=== PATIENT | female | born 1940 | race Caucasian/White ===

== ENCOUNTER → 2016-12-13 | Outpatient (CLI) | payer MEDICARE, MEDICAID ==
[~2016-12-13] MED LIST: ARICEPT5 M1 PO; ASPIRIN81 M1 PO; BACTRIM DS 8001 TA1 PO; BP MED; CHOLESTEROL PILL; CIPRO500 MG PO; CITALOPRAM20 MG PO; COREG6.25 MG PO; DOXEPIN HCL25 MG PO; EXELON13.3 MG/21 T; EXELON4.6 MG/24 T; HYDROCODONE BIT1 T11 PO; MEMANTINE HCL10 MG PO; MIRTAZAPINE15 M2 PO; NAMENDA-5 PO; NICODERM C14 MG/24 H TD; QUINAPRIL40 MG PO; REMEDY WITH OLI1 PAS T; VITAMIN D-32000 UNI1 PO; VITAMIN D50000 I3 PO; ZOLOFT50 MG PO
[2016-12-13 16:25] LABS: BASO # 0.1 10*3/uL (0.0-0.1); BASO % 1.5 % (0.0-1.0); EOS # 0.1 10*3/uL (0.0-0.4); EOS % 1.9 % (1.0-4.0); HEMATOCRIT 43.7 % (37.0-47.0); HEMOGLOBIN 14.6 g/dl (12.0-16.0); LYMPH # 1.9 10*3/uL (1.3-4.4); LYMPH % 35.5 % (27.0-41.0); MEAN CELL VOLUME 93.4 fl (81.0-99.0); MEAN CORPUSCULAR HGB 31.2 pg (27.0-31.0); MEAN CORPUSCULAR HGB CONC 33.4 g/dl (33.0-37.0); MEAN PLATELET VOLUME 9.3 fl (9.6-12.3); MONO # 0.4 10*3/uL (0.1-1.0); MONO % 7.1 % (3.0-9.0); NEUT # 2.8 10*3/uL (2.3-7.9); NEUT % 53.8 % (47.0-73.0); PLATELET COUNT AUTOMATED 383 10*3/uL (130-400); RED BLOOD COUNT 4.68 10*6/uL (4.10-5.10); RED CELL DISTRI WIDTH 12.8 % (0-14.5); WHITE BLOOD COUNT 5.2 10*3/uL (4.8-10.8)
[2016-12-13 16:39] LABS: ALBUMIN 3.7 gm/dl (3.1-4.5); ALKALINE PHOSPHATASE 113 U/L (45-117); BILIRUBIN, TOTAL 0.6 mg/dl (0.2-1.0); BUN 10 mg/dl (7-24); CARBON DIOXIDE 25 mmol/L (21-32); CHLORIDE 105 mmol/L (98-107); EST GLOM FILT AFRICAN AMERICAN > 60 ml/min; GLUCOSE 86 mg/dL (65-99); POTASSIUM 4.1 mmol/L (3.5-5.1); SGOT/AST 14 IU/L (3-35); SGPT/ALT 13 U/L (12-78); SODIUM 140 mmol/L (136-145); TOTAL PROTEIN 7.8 gm/dL (6.4-8.2)
[2016-12-13 17:35] LABS: VITAMIN D, 25-HYDROXY 32.7 ng/mL (30-100)
[2016-12-13 17:36] LABS: PTH INTACT 51.9 pg/mL (14.0-72.0)
== END ==
LOC: LAB 15:38
PROVIDERS: Nurse Practitioner Family
DX: F03.90 Unspecified dementia, unspecified severity, without behavioral disturbance, psychotic disturbance, mood disturbance, and anxiety (principal); E55.9 Vitamin D deficiency, unspecified; E78.4 Other hyperlipidemia; E83.51 Hypocalcemia

== ENCOUNTER 2017-01-28 11:53 | Inpatient (IN) | payer MEDICARE ==
[~2017-01-28] VITALS: Ht 165.1 cm; Wt 60.8 kg
--- NOTE | ~2017-01-28 | PR ---
[place], [place] PROGRESS NOTE [id number] #: [id number] ROOM: 310 DOCTOR: FATMATA PEÑA BIRTHDATE: [birth year] DOS: 02/01/2017 SUMMARY OF VISIT: The patient was assessed in the dining room. She engaged in conversation with just 1 or 2-word responses. She was somewhat sleepy, but otherwise, pleasant. No complaints from nursing. MENTAL STATUS: She is alert and oriented to person. At this time, I am not sure about place or time. There are no overt signs of auditory or visual hallucinations. She still can be delusional at times per nursing. Some cognitive deficits noted. PLAN: I increased her Exelon yesterday. I want to see how she does over the next 24 hours. She feels it will help her cognitively. We will continue with the other medications as is and continue to titrate her dementia meds up quickly. RALF PEÑA CNP CM:PNTRANS 0925 [id number] FATMATA PEÑA 02/01/17 0943 interface
--- NOTE | ~2017-01-28 | PR ---
[place], [place] PROGRESS NOTE NAME: NIC PRUETT [facility] #: [id number] UNIT #: [id number] ROOM: 310 DOCTOR: FATMATA PEÑA BIRTHDATE: [birth year] DOS: 01/30/2017 CHIEF COMPLAINT: "Good morning." SUMMARY OF VISIT: The patient was assessed in the dining room. She engaged in minimal conversation. She was pleasant. Only complaint from nursing is that the patient did lick her hands after they put lotion on her, and they felt that there was still some possible hallucinations going on. MENTAL STATUS: She is alert and oriented to person, I think place, I do not know about time. Still having poor sleep. No overt signs of auditory or visual hallucinations during my assessment. No delusions, paranoia, chang or hypomania. PLAN: She was just started on Remeron. Lets see how she does over the next 24 hours. She was also started on the Exelon patch for her cognitive decline. Dr. Ellis has been consulted for competency. We will continue to try to engage in individual and barclay milieu therapy and monitor over the next 24 hours to get a plan. RALF PEÑA CNP CM:KYLER 0842 FATMATA PEÑA 01/30/17 0958 interface
--- NOTE | ~2017-01-28 | PR ---
[place], [place] PROGRESS NOTE NAME: NIC PRUETT [facility] #: [id number] UNIT #: [id number] ROOM: 310 DOCTOR: FATMATA PEÑA BIRTHDATE: [birth year] DOS: 01/31/2017 CHIEF COMPLAINT: "Good morning." SUMMARY OF VISIT: The patient was assessed in the dining room where the barclay milieu had finished up taking her vitals. She engaged in minimal conversation, 1 or 2-word responses only though. MENTAL STATUS: She is alert and oriented to person, I think place, not time. No overt signs of auditory or visual hallucination. She can become delusional at times, doing bizarre behaviors in particular like yesterday she would lick the hand lotion off her hands after they put lotion on her. No significant behaviors are noted. PLAN: We did start her on Remeron 2 days ago. This is helping. I am going to bump up her Exelon patch to 9.5 mg every day, see if I can help a little bit cognitively, help more so with her preventing behaviors and helping maintain or increase some of her ADLs. Dr. Ellis did see the patient and deemed her incompetent to make informed healthcare decisions at this time. RALF PEÑA CNP CM:PNTRANS 6 2 FATMATA PEÑA 01/31/17822 interface
--- NOTE | ~2017-01-28 | CON ---
[place], [place] REPORT OF CONSULTATION NAME: NIC PRUETT [facility] #: [id number] UNIT #: [id number] ROOM: 310 DOCTOR: UMESH LAZO ED.D (DANITZA) BIRTHDATE: [birth year] DOS: HISTORY OF PRESENT ILLNESS: The patient is a 76-year-old female referred by Dr. Morgan for competency evaluation. At the present time, she is on the [facility] at [facility]. This patient's medical history is pertinent for brief psychotic disorder, altered mental status, Alzheimer's dementia, depression and hypertension. She is on Exelon, quinapril, Coreg, aspirin and vitamin D3. This patient was awake and alert, but was not oriented to place or time. She did know her name, but otherwise had no idea where she was or what year it was. She could not tell me her age or any other pertinent details. Apparently, she has been residing recently with her daughter and the patient possibly needs long-term care. I was consulted for competency and it is clear that this patient is not competent to make informed healthcare decisions. A completed paperwork for guardianship and this will be followed up by the social work professor on the Behavioral Health Unit. It is clear she needs someone to make her decisions for her and according to the records, there is no power of senior trial attorney for healthcare or otherwise. DIAGNOSIS: Major neurocognitive disorder - Alzheimer's disease. RECOMMENDATIONS: This patient is clearly not competent to make informed healthcare decisions. Thank you very much for this consult. UMESH LAZO ED.D CM:CONSTR:REPORT OF CONSULTATION 0949 01/29/17 1033 interface SANDEEP MORGAN MD
--- NOTE | ~2017-01-28 | DS ---
[place], [place] DISCHARGE SUMMARY NAME: NIC PRUETT [facility] #: [id number] UNIT #: [id number] ROOM: 310 DOCTOR: FATMATA PEÑA BIRTHDATE: [birth year] DOS: 02/06/2017 HISTORY OF PRESENT ILLNESS: This is a 76-year-old female who presents to [facility] with altered mental status. The family brought her in because she had worsening confusion with combativeness, has been gradually worsening over the past several weeks prior to her admission. She is verbally and physically aggressive towards them. They were concerned that she either had a recurrent UTI or had suffered a stroke. Her behaviors were so erratic and the fear for her safety in there is that she was admitted to rule out organic factors and stabilize on medication. She also had poor sleep and poor eating and possible depression. PAST MEDICAL HISTORY: Includes hypertension, colon polyps. DIAGNOSIS: AXIS I: Altered mental status, depression and dementia. HOSPITAL COURSE: The patient was started on Remeron 15 mg at bedtime. This will address her depression, aid in sleep and stimulate her appetite. She was on Exelon patch 4.6. We quickly titrated up to 13.3 mg to help with her cognitive decline. We also augmented this with Namenda to help with decreased behaviors, help increase and maintain her ADLs. Dr. Ellis was consulted for competency to decide if she could make decisions for herself. At the time of his 01/29/2017 report, she was deemed to not be competent and to be able to make informed healthcare decisions. Over the course, she was found to be vitamin D deficient. She was started on 50,000 international units q. week for vitamin D. Her Exelon again was titrated up to 13.3 mg. She responded well to Remeron and the addition of the Namenda as well. MENTAL STATUS: The patient is alert and oriented to person, I think place, not sure about time. Mood definitely trending towards euthymic. Affect is much more appropriate. Memory extremely poor. PLAN: The patient is being discharged to a nursing facility. She will be on the following psychiatric meds, Exelon patch 13.3 mg every day for her dementia, Namenda 5 mg q.a.m. and 10 mg at bedtime, this is for dementia as well. It is augmenting the effectiveness of the Exelon. Long-term goal is to get her on the total dose of 20 mg every day. The facility over the next couple of weeks can increase the Namenda to 10 mg b.i.d. for maximum dose of 20. She is on vitamin D 50,000 International Units every week, next dose is due on Friday, and she is on Remeron 15 mg at bedtime. The lower dose has the histamine response, so it not only helps with depression, but the low dose is it helps aid in sleep since dementia patients can get their days and nights messed up and it also stimulates her appetite. The patient is being discharged in stable condition. [place], [place] DISCHARGE SUMMARY NAME: NIC PRUETT UNIT #: [id number] ROOM: 310 DOCTOR: FATMATA PEÑA BIRTHDATE: [birth year] RALF PEÑA CNP CM:DISCHARG 0851 FATMATA PEÑA 02/06/17 0931 interface
--- NOTE | ~2017-01-28 | WRIGHTHP ---
[place], [place] PATIENT HISTORY AND PHYSICAL EXAM NAME: NIC PRUETT UNIT #: [id number] ROOM: 310 DOCTOR: SANDEEP HONG MD BIRTHDATE: [birth year] DOS: 01/29/2017 INITIAL PSYCHIATRIC EVALUATION CHIEF COMPLAINT: "I have just been depressed. I am not sleeping." HISTORY OF PRESENT ILLNESS: This is a 76-year-old white female who presents to [facility] with altered mental status. Per the patient's family, they brought her in because of worsening confusion and combativeness. The patient has been worsening over the last several weeks prior to this admission. She has been verbally and physically aggressive towards them. There were some concerns that a UTI has recurred and also the possibility that she may have suffered a stroke. Her behavior thus has become so erratic that they fear for her safety and their safety. Additionally, the patient has not been sleeping or eating well and there is a further issue of possible depression. She is admitted now to rule out any organic factors to attempt to stabilize on medication and to determine the appropriate post-discharge plans. PAST MEDICAL HISTORY: Remarkable for hypertension, depression, colon polyps and dementia. MENTAL STATUS: The patient is alert and oriented to person, place, approximate to time. Mood does seem to be rather down and she is rather flat and blunted. Her affective range is constricted. She endorses multiple neurovegetative signs. At times, her responses are inappropriate and she tends to be very vague. There is no chang or hypomania. There are no auditory or visual hallucinations. No delusions, no paranoia. Short term memory is exceedingly poor. DIAGNOSIS: Major depression, recurrent, rule out with psychotic features. PLAN: I will go ahead and start her on Remeron 15 mg at bedtime, Exelon patch 4.6 mg daily for her cognitive decline. Dr. Ellis has been consulted for competency, whether or not we need to obtain a guardian for her given the fact that she may not be able to make decisions for herself. We will explore possible discharge plans and discharge her to the least restrictive environment. [place], [place] PATIENT HISTORY AND PHYSICAL EXAM NAME: NIC PRUETT UNIT #: [id number] ROOM: 310 DOCTOR: SANDEEP HONG MD BIRTHDATE: [birth year] SANDEEP HONG MD CM:HISPHYS:PATIENT HISTORY AND PHYSICAL EXAMINATION 0938 03 SANDEEP HONG MD 01/29/17 1004 interface
--- NOTE | ~2017-01-28 | PR ---
[place], [place] [id number] UN[facility] #: [id number] ROOM: 310 DOCTOR: SANDEEP HONG MD BIRTHDATE: [birth year] DOS: 02/03/2017 CHIEF COMPLAINT: "I don't know, is it breakfast time or not." HISTORY OF SUMMARY OF THE VISIT: The patient was interviewed in the dining area where she was sitting waiting for breakfast. She engaged readily in conversation. I did later re-interview her walking in the hurd. She remains pleasantly confused. Her responses at times are inappropriate to the questions asked of her. MENTAL STATUS: She is alert and oriented to person, possibly place, certainly not time. Mood does seem to be trending towards euthymia. Affect is more appropriate. She does have marked processing slowness and her short term memory is exceedingly poor. ASSESSMENT AND PLAN: I will renew the Ativan so it is their in case she needs it. Her Exelon patch was maximized at 13.3 mg daily. I will now begin to augment with Namenda 5 mg a day with the target dose of 20 mg a day in mind. Engage in individual and barclay milieu activities with the plan to return to the least restrictive environment when stable. SANDEEP HONG MD CM:PNTRANS 0850 1022 SANDEEP HONG MD 02/03/17 1022 interface
--- NOTE | ~2017-01-28 | PR ---
[place], [place] PROGRESS NOTE NAME: NIC PRUETT [facility] #: [id number] UNIT #: [id number] ROOM: 310 DOCTOR: FATMATA PEÑA BIRTHDATE: [birth year] DOS: 02/02/2017 SUMMARY OF VISIT: The patient was assessed in the dining room where she was working with dietary with regards to her meals. She was not really responding. She occasionally does one or two word responses, but she does make good eye contact and when you grab her hand to hold it, she will squeeze back. MENTAL STATUS: She is alert and oriented to person. I do not know about place or time. There are no overt signs of auditory or visual hallucinations, delusions, or paranoia. Nursing notes no issues in the last 24 hours. PLAN: I increased her Exelon the other day. She is tolerating this. We will continue to try to engage in individual and barclay milieu therapy. Let us make sure she is moving around, good p.o. intake. We will go ahead and bump up the Exelon patch one more time and then we will concentrate on the other meds as needed. RALF PEÑA CNP CM:KYLER 120 FATMATA PEÑA 02/02/17 120 interface
[~2017-01-28 11:53] MED LIST changes: -EXELON13.3 MG/21 T; -MEMANTINE HCL10 MG PO; -MIRTAZAPINE15 M2 PO; -NAMENDA-5 PO; -REMEDY WITH OLI1 PAS T; -VITAMIN D50000 I3 PO
[2017-01-28 12:02] VITALS: BP 159/82
[2017-01-28 12:41] LABS: BASO # 0.1 10*3/uL (0.0-0.1); BASO % 1.5 % (0.0-1.0); EOS # 0.2 10*3/uL (0.0-0.4); EOS % 2.9 % (1.0-4.0); HEMATOCRIT 42.4 % (37.0-47.0); HEMOGLOBIN 13.9 g/dl (12.0-16.0); LYMPH # 1.9 10*3/uL (1.3-4.4); LYMPH % 36.6 % (27.0-41.0); MEAN CELL VOLUME 95.7 fl (81.0-99.0); MEAN CORPUSCULAR HGB 31.4 pg (27.0-31.0); MEAN CORPUSCULAR HGB CONC 32.8 g/dl (33.0-37.0); MONO # 0.4 10*3/uL (0.1-1.0); MONO % 6.7 % (3.0-9.0); NEUT # 2.7 10*3/uL (2.3-7.9); NEUT % 51.9 % (47.0-73.0); PLATELET COUNT AUTOMATED 354 10*3/uL (130-400); RED BLOOD COUNT 4.43 10*6/uL (4.10-5.10); RED CELL DISTRI WIDTH 13.3 % (0-14.5); WHITE BLOOD COUNT 5.2 10*3/uL (4.8-10.8)
[2017-01-28 12:53] LABS: PROTHROMBIN TIME 10.3 SECONDS (9.0-12.4)
[2017-01-28 13:00] LABS: ALBUMIN 3.6 gm/dl (3.1-4.5); BILIRUBIN, TOTAL 0.3 mg/dl (0.2-1.0); BUN 7 mg/dl (7-24); CARBON DIOXIDE 29 mmol/L (21-32); CHLORIDE 107 mmol/L (98-107); EST GLOM FILT AFRICAN AMERICAN > 60 ml/min; GLUCOSE 83 mg/dL (65-99); MAGNESIUM 2.2 mg/dL (1.5-2.1); POTASSIUM 3.8 mmol/L (3.5-5.1); SGOT/AST 12 IU/L (3-35); SGPT/ALT 14 U/L (12-78); SODIUM 143 mmol/L (136-145); TOTAL PROTEIN 7.6 gm/dL (6.4-8.2)
[2017-01-28 13:01] LABS: ALKALINE PHOSPHATASE 97 U/L (45-117); CPK 31 U/L (26-192)
[2017-01-28 13:02] LABS: C-REACTIVE PROTEIN < 0.29 MG/DL (0-0.3); CKMB < 0.5 ng/ml (0.5-3.6); TROPONIN I < 0.015 ng/ml (<0.045)
[2017-01-28 13:13] VITALS: BP 158/80
[2017-01-28 15:08] LABS: BILIRUBIN NEGATIVE (NEGATIVE); BLOOD TRACE-LYSED (NEGATIVE); CLARITY CLEAR (CLEAR); COLOR YELLOW (YELLOW); GLUCOSE NEGATIVE (NEGATIVE); KETONE NEGATIVE (NEGATIVE); LEUKO ESTERASE NEGATIVE (NEGATIVE); NITRITE NEGATIVE (NEGATIVE); PROTEIN NEGATIVE (NEGATIVE); UROBILINOGEN 0.2 E.U./dl (0.2-1.0)
[2017-01-28 15:16] LABS: RBC 0-2 rbc/hpf (0-2); URINE REFLEX COMMENT NO (NO)
[2017-01-28 15:17] LABS: EPITHELIAL CELLS 0-2
[2017-01-28 15:42] VITALS: BP 170/77
[2017-01-28 18:30] VITALS: BP 143/80
[2017-01-28 19:53] LABS: FOLIC ACID 10.97 ng/mL (>5.38); VITAMIN D, 25-HYDROXY 21.6 ng/mL (30-100)
[2017-01-28 20:17] VITALS: BP 142/96
[2017-01-29 07:52] VITALS: BP 146/72
[2017-01-29 07:56] VITALS: BP 146/72
[2017-01-29 20:08] VITALS: BP 123/59
[2017-01-29 20:46] VITALS: BP 123/59
[2017-01-30 08:03] VITALS: BP 104/52
[2017-01-30 20:24] VITALS: BP 144/62
[2017-01-31 08:39] VITALS: BP 141/74
[2017-01-31 09:21] VITALS: BP 141/74
[2017-01-31 20:31] VITALS: BP 125/63
[2017-01-31 22:40] VITALS: BP 125/63
[2017-02-01 08:05] VITALS: BP 145/82
[2017-02-01 09:08] VITALS: BP 145/82
[2017-02-01 20:00] VITALS: BP 130/90
[2017-02-02 08:14] VITALS: BP 127/58
[2017-02-02 20:08] VITALS: BP 157/69
[2017-02-03 08:01] VITALS: BP 118/58
[2017-02-03 08:28] VITALS: BP 118/58
[2017-02-03 20:00] VITALS: BP 140/70
[2017-02-04 08:09] VITALS: BP 126/75
[2017-02-04 11:08] VITALS: BP 126/75
[2017-02-04 20:38] VITALS: BP 140/90
[2017-02-05 08:13] VITALS: BP 142/70
[2017-02-05 20:07] VITALS: BP 148/90
[2017-02-06 07:59] VITALS: BP 122/53
[2017-02-06] MEDS ORDERED: NAMENDA-5 PO (08:47)
[2017-02-06] MEDS ORDERED: VITAMIN D50000 I3 PO (08:47)
[2017-02-06] MEDS ORDERED: EXELON13.3 MG/21 T (08:47)
[2017-02-06] MEDS ORDERED: MEMANTINE HCL10 MG PO (08:47)
[2017-02-06] MEDS ORDERED: MIRTAZAPINE15 M2 PO (08:47)
[2017-02-06] MEDS ORDERED: REMEDY WITH OLI1 PAS T (11:47)
== END 2017-02-06 14:50 | DRG 56 ==
LOC: ED 11:53 → 3N 16:34
PROVIDERS: Emergency Medicine; Psychiatry & Neurology Psychiatry
DX: G30.1 Alzheimer's disease with late onset (principal); G93.41 Metabolic encephalopathy; F33.9 Major depressive disorder, recurrent, unspecified; F02.81 Dementia in other diseases classified elsewhere, unspecified severity, with behavioral disturbance; I10 Essential (primary) hypertension; F17.210 Nicotine dependence, cigarettes, uncomplicated; E83.41 Hypermagnesemia; Z90.49 Acquired absence of other specified parts of digestive tract; Z80.0 Family history of malignant neoplasm of digestive organs; Z82.49 Family history of ischemic heart disease and other diseases of the circulatory system; Z88.0 Allergy status to penicillin; Z91.041 Radiographic dye allergy status; Z79.899 Other long term (current) drug therapy

== ENCOUNTER 2017-02-11 18:03 | Inpatient (IN) | payer MEDICARE ==
[~2017-02-11] VITALS: Ht 165.1 cm; Wt 60.8 kg
--- NOTE | ~2017-02-11 | PR ---
[place], [place] PROGRESS NOTE NAME: NIC PRUETT [facility] #: [id number] UNIT #: [id number] ROOM: 316 DOCTOR: FATMATA PEÑA BIRTHDATE: [birth year] DOS: 02/19/2017 CHIEF COMPLAINT: "Good morning." SUMMARY OF VISIT: The patient was interviewed in the dining room, where she engaged in conversation. Initially, a little salty but then opened up and was appropriate. MENTAL STATUS: She is alert and oriented to person, place, approximate time. Mood is trending towards euthymic. Affect is appropriate. There is no chang, hypomania, auditory or visual hallucinations, delusions, or paranoia. PLAN: Continue with the current psychotropics. If she continues to do well and sleeps well again tonight, we can look at discharge as soon as tomorrow. RALF PEÑA CNP CM:PNTRANS 0841 FATMATA PEÑA 02/19/17 0934 interface
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
--- NOTE | ~2017-02-11 | PR ---
[place], [place] PROGRESS NOTE [id number] UNIT #: [id number] ROOM: 316 DOCTOR: SANDEEP HONG MD BIRTHDATE: [birth year] DOS: 02/18/2017 CHIEF COMPLAINT: "See him there that's my boyfriend too." SUMMARY OF THE VISIT: The patient was interviewed in the dining area where she sat at a table with several female peers. She engaged in conversation readily. She was rather joking with me, but pleasantly so there was no overt agitation noted. There is no mood lability and she seems to be tolerating her current medication regimen well without any apparent side effects. MENTAL STATUS: She is alert and oriented to person, place, and approximate to time. Mood does seem to be trending towards euthymia and affect is more appropriate. There is no symptom suggestive of chang or hypomania and no auditory or visual hallucinations, delusions or paranoia. Short-term memory is exceedingly poor, otherwise she is intact. PLAN: I will maintain her current psychotropic regimen, continue to engage her in individual and barclay milieu activity with the ultimate plan then to discharge to the at least restrictive environment when psychiatrically stable. SANDEEP HONG MD CM:PNTRANS 0939 1039 SANDEEP HONG MD 02/18/17 1039 interface
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
--- NOTE | ~2017-02-11 | PR ---
[place], [place] PROGRESS NOTE NAME: NIC PRUETT [facility] #: [id number] UNIT #: [id number] ROOM: 316 DOCTOR: SANDEEP HONG MD BIRTHDATE: [birth year] DOS: 02/17/2017 CHIEF COMPLAINT: "Good morning there." SUMMARY OF THE VISIT: The patient was interviewed as she sat ready for breakfast. She engaged readily in conversation, being somewhat teasing in nature and at times negative, but overall pleasant. She voiced no complaints. She reports good sleep and appetite, remains relatively confused, but redirectable. MENTAL STATUS: She is alert and oriented to person, place, but not time. Mood does seem to be fairly euthymic. Affect appropriate. There are no symptoms suggestive of chang or hypomania. There are no overt auditory or visual hallucinations. No delusions are present. Short-term memory is poor. Otherwise, she is intact. PLAN: I will renew her Ativan in case she requires it later. Maintain individual and barclay milieu activities, returning either home or to the least restrictive environment when stable. SANDEEP HONG MD CM:PNTRANS 0936 0954 SANDEEP HONG MD 02/17/17 0954 interface
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
[~2017-02-11 18:03] MED LIST changes: +EXELON13.3 MG/21 T; +MEMANTINE HCL10 MG PO; +MIRTAZAPINE15 M2 PO; +NAMENDA-5 PO; +REMEDY WITH OLI1 PAS T; +VITAMIN D50000 I3 PO
[2017-02-11 19:14] LABS: BILIRUBIN NEGATIVE (NEGATIVE); BLOOD NEGATIVE (NEGATIVE); CLARITY SL CLOUDY (CLEAR); COLOR YELLOW (YELLOW); GLUCOSE NEGATIVE (NEGATIVE); KETONE NEGATIVE (NEGATIVE); LEUKO ESTERASE NEGATIVE (NEGATIVE); NITRITE NEGATIVE (NEGATIVE); PH 5.5 (5.0-9.0); PROTEIN NEGATIVE (NEGATIVE); SPECIFIC GRAVITY 1.025 (1.005-1.030); UROBILINOGEN 0.2 E.U./dl (0.2-1.0)
[2017-02-11] MEDS ORDERED: MELATONIN5 M1 PO (19:17)
[2017-02-11] MEDS ORDERED: HALDOL5 MG/M1 IM (19:17)
[2017-02-11] MEDS ORDERED: LISINOPRIL40 MG PO (19:22)
[2017-02-11 19:32] LABS: BACTERIA 3+; URINE REFLEX COMMENT YES (NO); WBC 0-2 wbc/hpf (0-5)
[2017-02-11 20:48] LABS: BASO # 0.1 10*3/uL (0.0-0.1); EOS # 0.3 10*3/uL (0.0-0.4); EOS % 4.4 % (1.0-4.0); HEMATOCRIT 38.8 % (37.0-47.0); HEMOGLOBIN 12.4 g/dl (12.0-16.0); LYMPH # 1.6 10*3/uL (1.3-4.4); LYMPH % 25.7 % (27.0-41.0); MEAN CELL VOLUME 98.5 fl (81.0-99.0); MEAN CORPUSCULAR HGB 31.5 pg (27.0-31.0); MEAN PLATELET VOLUME 9.2 fl (9.6-12.3); MONO # 0.6 10*3/uL (0.1-1.0); MONO % 10.5 % (3.0-9.0); NEUT # 3.6 10*3/uL (2.3-7.9); NEUT % 58.1 % (47.0-73.0); PLATELET COUNT AUTOMATED 337 10*3/uL (130-400); RED BLOOD COUNT 3.94 10*6/uL (4.10-5.10); RED CELL DISTRI WIDTH 13.6 % (0-14.5); WHITE BLOOD COUNT 6.1 10*3/uL (4.8-10.8)
[2017-02-11 20:58] VITALS: BP 120/90
[2017-02-11 21:08] LABS: ALBUMIN 3.4 gm/dl (3.1-4.5); ALKALINE PHOSPHATASE 114 U/L (45-117); BILIRUBIN, TOTAL 0.2 mg/dl (0.2-1.0); BUN 20 mg/dl (7-24); CARBON DIOXIDE 27 mmol/L (21-32); CHLORIDE 108 mmol/L (98-107); EST GLOM FILT AFRICAN AMERICAN > 60 ml/min; GLUCOSE 91 mg/dL (65-99); POTASSIUM 4.2 mmol/L (3.5-5.1); SGOT/AST 17 IU/L (3-35); SGPT/ALT 21 U/L (12-78); SODIUM 143 mmol/L (136-145); TOTAL PROTEIN 7.7 gm/dL (6.4-8.2)
[2017-02-11 22:14] LABS: VITAMIN D, 25-HYDROXY 31.9 ng/mL (30-100)
[2017-02-11 23:50] VITALS: BP 161/90
[2017-02-12 07:50] VITALS: BP 134/75
[2017-02-12 19:39] VITALS: BP 135/80
[2017-02-13 07:19] VITALS: BP 131/68
[2017-02-13 20:38] VITALS: BP 121/67
[2017-02-14 07:13] VITALS: BP 116/84
[2017-02-14 20:07] VITALS: BP 122/65
[2017-02-15 08:42] VITALS: BP 120/70
[2017-02-15 20:00] VITALS: BP 124/60
[2017-02-16 09:13] VITALS: BP 138/70
[2017-02-16 20:00] VITALS: BP 123/68
[2017-02-17 07:50] VITALS: BP 128/85
[2017-02-17 19:58] VITALS: BP 160/77
[2017-02-18 08:00] VITALS: BP 148/78
[2017-02-18 20:17] VITALS: BP 130/80
[2017-02-19 07:55] VITALS: BP 136/62
== END 2017-02-19 13:50 | disposition home health service (06) | DRG 56 ==
LOC: 3N 18:03
PROVIDERS: Psychiatry & Neurology Psychiatry
DX: G30.1 Alzheimer's disease with late onset (principal); G93.41 Metabolic encephalopathy; F33.2 Major depressive disorder, recurrent severe without psychotic features; F23 Brief psychotic disorder; F02.81 Dementia in other diseases classified elsewhere, unspecified severity, with behavioral disturbance; F63.9 Impulse disorder, unspecified; E55.9 Vitamin D deficiency, unspecified; I10 Essential (primary) hypertension; R41.0 Disorientation, unspecified; F17.210 Nicotine dependence, cigarettes, uncomplicated; Z80.0 Family history of malignant neoplasm of digestive organs; Z82.49 Family history of ischemic heart disease and other diseases of the circulatory system; Z90.49 Acquired absence of other specified parts of digestive tract; Z88.0 Allergy status to penicillin; Z91.041 Radiographic dye allergy status; Z79.899 Other long term (current) drug therapy

== ENCOUNTER 2017-03-19 13:28 | Inpatient (IN) | payer MEDICARE ==
[~2017-03-19] VITALS: Ht 165.1 cm; Wt 63.0 kg
--- NOTE | ~2017-03-19 | CON ---
[place], [place] REPORT OF CONSULTATION NAME[id number] UNIT #: [id number] ROOM: 406 DOCTOR: FATMATA PEÑA BIRTHDATE: [birth year] DOS: 03/20/2017 PSYCHIATRIC CONSULTATION HISTORY OF PRESENT ILLNESS: This is a 76-year-old female known to us for multiple stays on the [facility]. She presented to the Emergency Department with her daughter stating that she has been fighting with people that were not there for the past 5 nights, very different than her baseline. Her daughter stated that she gets like this when she gets a UTI and I can attest that she had a UTI on our unit at one point in time and she becomes very delusional, usually talking about cats and people. She has a history of dementia with psychosis. Her baseline is very confused, Dr. Morgan had adjusted her Seroquel dosage to help with aid in sleep and we were using Exelon for her dementia and Depakote to help with her impulsivity. The patient was found to have a urinary tract infection and possibly some pneumonia. PAST MEDICAL HISTORY: Colon polyps, hypertension, metabolic encephalopathy. Psych: AXIS I: Dementia with behavioral disturbances; psychosis, depression. The physician restarted her Depakote 250 mg t.i.d. this is to help with impulsivity, Seroquel 25 mg at bedtime. He did not restart the 12.5 mg b.i.d., this is primarily used to help with some of her sedation when family called because of increased confusion. At this point in time, I concur with holding the 12.5 b.i.d. at this point in time, she was also on Exelon patch ____ mg every day. MENTAL STATUS: The patient is alert and oriented to person, place, not time. Nursing did note that in the evenings very impulsive, agitated and this is this patient's baseline, this is her ____ sundowns very badly. I think once we get the Depakote in her system we are going to start seeing improvement. There are some hallucinations regarding cats. It is my understanding some delusions, but no paranoia at this point in time. No chang or hypomania. PLAN: The hospitalist restarted her Depakote, her Exelon patch and part of her Seroquel. We have reached out to [facility] specializing in Alzheimer dementia. They do have a bed waiting for her when she is cleared medically, if she is stable and back to her baseline confusion, it would be appropriate just to discharge straight to [facility]. Dr. Morgan will be there that this week and I will be there next week and we can just transition her back in there. If, however, they clear her medically, but she is still agitated, behavioral violent, we would entertain possible admission to the Behavioral Health Unit. At this point in time, she needs to be stabilized medically. I put an order in to have a valproic acid level checked in a few days just to confirm where she at with the Depakote being restarted and then it will need to be every 3 months while she is on Depakote. [place], [place] REPORT OF CONSULTATION NAME: NIC PRUETT UNIT #: [id number] ROOM: 406 DOCTOR: FATMATA PEÑA BIRTHDATE: [birth year] RALF PEÑA CNP CM:CONSTR:REPORT OF CONSULTATION 0839 03/20/17 2357 interface
[~2017-03-19 13:28] MED LIST changes: +HALDOL5 MG/M1 IM; +LISINOPRIL40 MG PO; +MELATONIN5 M1 PO
[2017-03-19] MEDS ORDERED: SEROQUEL25 MG PO ×2 (13:35→13:36)
[2017-03-19 13:36] VITALS: BP 116/89
[2017-03-19 14:17] LABS: BASO # 0.1 10*3/uL (0.0-0.1); BASO % 1.3 % (0.0-1.0); EOS # 0.1 10*3/uL (0.0-0.4); EOS % 2.6 % (1.0-4.0); HEMATOCRIT 42.5 % (37.0-47.0); HEMOGLOBIN 13.8 g/dl (12.0-16.0); LYMPH # 1.7 10*3/uL (1.3-4.4); LYMPH % 31.3 % (27.0-41.0); MEAN CELL VOLUME 96.8 fl (81.0-99.0); MEAN CORPUSCULAR HGB 31.4 pg (27.0-31.0); MEAN CORPUSCULAR HGB CONC 32.5 g/dl (33.0-37.0); MONO # 0.5 10*3/uL (0.1-1.0); MONO % 9.3 % (3.0-9.0); NEUT % 55.1 % (47.0-73.0); PLATELET COUNT AUTOMATED 273 10*3/uL (130-400); RED BLOOD COUNT 4.39 10*6/uL (4.10-5.10); RED CELL DISTRI WIDTH 13.2 % (0-14.5); WHITE BLOOD COUNT 5.5 10*3/uL (4.8-10.8)
[2017-03-19 14:45] LABS: BUN 12 mg/dl (7-24); CARBON DIOXIDE 31 mmol/L (21-32); CHLORIDE 99 mmol/L (98-107); EST GLOM FILT AFRICAN AMERICAN > 60 ml/min; GLUCOSE 83 mg/dL (65-99); POTASSIUM 3.7 mmol/L (3.5-5.1); SODIUM 138 mmol/L (136-145)
[2017-03-19 14:47] LABS: TROPONIN I < 0.015 ng/ml (<0.045)
[2017-03-19 15:11] LABS: BILIRUBIN NEGATIVE (NEGATIVE); BLOOD 1+ (NEGATIVE); CLARITY SL CLOUDY (CLEAR); COLOR YELLOW (YELLOW); GLUCOSE NEGATIVE (NEGATIVE); KETONE NEGATIVE (NEGATIVE); LEUKO ESTERASE 3+ (NEGATIVE); NITRITE NEGATIVE (NEGATIVE); PH 5.5 (5.0-9.0); PROTEIN NEGATIVE (NEGATIVE); UROBILINOGEN 0.2 E.U./dl (0.2-1.0)
[2017-03-19 15:19] LABS: BACTERIA TRACE; URINE REFLEX COMMENT YES (NO); WBC 31-40 wbc/hpf (0-5)
[2017-03-19 16:58] VITALS: BP 120/70
[2017-03-19 18:10] VITALS: BP 167/87
[2017-03-19] MEDS ORDERED: DEPAKOTE250 MG PO (18:11)
[2017-03-20 00:08] VITALS: BP 148/64
[2017-03-20 07:01] LABS: BASO # 0.1 10*3/uL (0.0-0.1); BASO % 1.5 % (0.0-1.0); EOS # 0.2 10*3/uL (0.0-0.4); EOS % 3.5 % (1.0-4.0); HEMATOCRIT 37.3 % (37.0-47.0); HEMOGLOBIN 12.3 g/dl (12.0-16.0); LYMPH # 2.6 10*3/uL (1.3-4.4); LYMPH % 46.9 % (27.0-41.0); MEAN CELL VOLUME 95.2 fl (81.0-99.0); MEAN CORPUSCULAR HGB 31.4 pg (27.0-31.0); MEAN PLATELET VOLUME 9.2 fl (9.6-12.3); MONO # 0.6 10*3/uL (0.1-1.0); NEUT % 36.9 % (47.0-73.0); PLATELET COUNT AUTOMATED 243 10*3/uL (130-400); RED BLOOD COUNT 3.92 10*6/uL (4.10-5.10); RED CELL DISTRI WIDTH 13.2 % (0-14.5); WHITE BLOOD COUNT 5.4 10*3/uL (4.8-10.8)
[2017-03-20 07:14] LABS: HEMOGLOBIN A1c 5.2 % (4.8-5.6)
[2017-03-20 07:34] LABS: BUN 11 mg/dl (7-24); CARBON DIOXIDE 29 mmol/L (21-32); CHLORIDE 102 mmol/L (98-107); CHOLESTEROL 166 mg/dL (<200); EST GLOM FILT AFRICAN AMERICAN > 60 ml/min; GLUCOSE 84 mg/dL (65-99); MAGNESIUM 1.8 mg/dL (1.5-2.1); PHOSPHOROUS 3.1 mg/dL (2.5-4.9); POTASSIUM 3.8 mmol/L (3.5-5.1); SODIUM 134 mmol/L (136-145); TRIGLYCERIDES 92 mg/dl (<150); VLDL CHOLESTEROL 18 mg/dL (6-40)
[2017-03-20 07:43] LABS: HDL CHOLESTEROL 53 mg/dl (40-60); LDL CHOLESTEROL 95 mg/dL (9-159)
[2017-03-20 07:50] LABS: FOLIC ACID 10.59 ng/mL (>5.38)
[2017-03-20 08:00] VITALS: BP 141/54
[2017-03-20 16:00] VITALS: BP 141/70
[2017-03-20 20:00] VITALS: BP 180/90
[2017-03-21] VITALS: BP 133/67
[2017-03-21 08:00] VITALS: BP 143/69
[2017-03-21] MEDS ORDERED: NAMENDA-5 PO (12:11)
[2017-03-21] MEDS ORDERED: D-1000 185 MG-11 TAB PO (12:11)
[2017-03-21] MEDS ORDERED: DIVALPROEX SOD125 M1 PO (12:11)
== END 2017-03-21 14:23 | disposition home health service (06) | DRG 689 ==
LOC: ED 13:28 → 4E 16:41 → EDHOLD 16:41 → 4E 17:27
PROVIDERS: Emergency Medicine; Internal Medicine
DX: N39.0 Urinary tract infection, site not specified (principal); G93.41 Metabolic encephalopathy; F02.81 Dementia in other diseases classified elsewhere, unspecified severity, with behavioral disturbance; F32.9 Major depressive disorder, single episode, unspecified; E55.9 Vitamin D deficiency, unspecified; G30.9 Alzheimer's disease, unspecified; I10 Essential (primary) hypertension; L27.0 Generalized skin eruption due to drugs and medicaments taken internally; F17.210 Nicotine dependence, cigarettes, uncomplicated; T36.8X5A Adverse effect of other systemic antibiotics, initial encounter; Z86.010 Personal history of colon polyps; Z88.0 Allergy status to penicillin; Z91.041 Radiographic dye allergy status; Z90.49 Acquired absence of other specified parts of digestive tract; Z80.8 Family history of malignant neoplasm of other organs or systems; Z82.49 Family history of ischemic heart disease and other diseases of the circulatory system; Z79.82 Long term (current) use of aspirin; Z79.899 Other long term (current) drug therapy

== ENCOUNTER 2017-03-21 14:02 | Inpatient (IN) | payer MEDICARE ==
--- NOTE | ~2017-03-21 | CON ---
[place], [place] REPORT OF CONSULTATION NAME: NIC PRUETT UNIT #: [id number] ROOM: 317 DOCTOR: SANDEEP HONG MD BIRTHDATE: [birth year] DOS: 03/21/2017 CHIEF COMPLAINT: "They are over there, can't you see it." HISTORY OF PRESENT ILLNESS: This is a 76-year-old white female known to me from my private practice in [place] as well as several admissions to the [facility]. The patient had presented to the Emergency Room with her daughter with the daughter stating that the patient has been increasingly more agitated, confused and psychotic. The patient apparently had not slept for the last several days and has been having fights with unforeseen others and responding to unforeseen others. She has been very delusional and believes that there are cats in the wall and is acting very bizarrely. Much of this behavior worsens for this patient when she has a UTI and once again, she was found to have a UTI upon her admission to the Emergency Room and subsequently brought into the hospital for further treatment. The patient has a history of hypertension, metabolic encephalopathy and colonic polyps. MENTAL STATUS: Mental status this morning was limited due to her somnolence. She did wake up and engaged in brief conversation. She is alert and oriented to self only. She may realize she is in the hospital, but it is unclear if she does. She is very confused and disjointed and grossly psychotic. Mood is very labile and she is on the verge of tears at times. 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 PLAN: I do think she would benefit from restabilization on the [facility]. The ultimate plan is to seek placement at [facility] where she can get the attention she requires 24 hours a day. SANDEEP HONG MD CM:CONSTR:REPORT OF CONSULTATION 0928 03/22/17 0211 interface
--- NOTE | ~2017-03-21 | DS ---
[place], [place] DISCHARGE SUMMARY [id number] UNIT #: [id number] ROOM: 317 DOCTOR: FATMATA PEÑA BIRTHDATE: [birth year] DOS: 03/28/2017 DISCHARGE SUMMARY/TRANSFER TO THE MEDICAL FLOOR I received a call from nursing staff. The patient had a sudden change in mentation and behaviors shortness of breath, using accessory muscles to breathe, unable to follow commands or squeeze hands, unsure what was going on, hospitalist was called to evaluate the patient and felt that she was in need of further medical evaluation. The patient was transferred to the medical floor for further followup and stabilization. At this point, I reviewed all the meds that she is currently on. I will leave it up to the hospitalist, they want to continue ____, but the medications that we currently have her on would be appropriate as long as they do not find any reason why she should not continue taking them. RALF PEÑA CNP CM:DISCHARG 0638 [id number] FATMATA PEÑA 03/30/17 1354 interface
--- NOTE | ~2017-03-21 | PR ---
[place], [place] PROGRESS NOTE NAME: [facility] [id number] UNIT #: [id number] ROOM: 317 DOCTOR: FATMATA PEÑA BIRTHDATE: [birth year] DOS: 03/29/2017 SUMMARY OF VISIT: The patient was assessed. Nursing has noted that her p.o. intake has been less, so we are going to order her some Boost. She does become very verbal, yelling out in the afternoon. She is much more alert and oriented this morning than I have seen her in a while. PLAN: I did decrease her Depakote level even though it was in the therapeutic range to see if we could decrease some of this sedation, so we will look at trying to get her some Boost. We will keep her Depakote where it is right now and use p.r.n. medications if we need to. We could plan to discharge when stable. RALF PEÑA CNP CM:PNTRANS 0901 2356 FATMATA PEÑA 03/29/17 2356 interface
--- NOTE | ~2017-03-21 | PR ---
[place], [place] PROGRESS NOTE [id number] UNIT #: [id number] ROOM: 317 DOCTOR: FATMATA PEÑA BIRTHDATE: [birth year] DOS: 03/28/2017 SUMMARY OF VISIT: The patient was assessed in the dining room. She had her eyes closed most of the time, but every now and then would yell out expletives in response to something one of the patient was telling me. She is a little bit more alert than she was over the last couple of days. MENTAL STATUS: She is alert and oriented to name. I do not know about place and time. The staff states that she is still yelling out about the cat, can be delusional and paranoid still, but that she is much more alert than she has been in the last couple of days. PLAN: I changed her Depakote down to 250 t.i.d. yesterday. I want to see how she continues to wake up over the next 24 hours. I may have to bump up the Depakote a little bit if she continues to yell expletives. We will check a valproic acid level may be over the weekend and go from there. RALF PEÑA CNP CM:PNTRANS 0813 0035 FATMATA PEÑA 03/29/17 0035 interface
--- NOTE | ~2017-03-21 | PR ---
[place], [place] PROGRESS NOTE [id number] UNIT #: [id number] ROOM: 317 DOCTOR: FATMATA PEÑA BIRTHDATE: [birth year] DOS: 03/26/2017 I reviewed the patient's labs. She is very sedate and lethargic, but is other. She is either somnolent or she is yelling and thinks about cats. We are having a difficult time trying to find that right combination of medications that is working well for her. I checked the valproic acid level, on the it was 59.1, I am going to go ahead and just double check it. I will check it again today and see where she is at. We do not have any current chemistry or CBC on her. Initially, her sodium was low. Her ammonia level was elevated. I want to see if this has changed at all, rule out anything that is going on organic. I did note that her Cymbalta was scheduled for morning. I am going to switch that to the evening. I am going to stop her scheduled 3 times a day Ativan and see if she wakes up any more today and then we can evaluate the Depakote if we need to adjust that. We will continue to try to engage in individual and barclay milieu therapy. At this point in time, she may just be metabolizing this medication differently and we are just going to find that right dose to help break her psychosis and decrease the yelling and her impulsivity, but not leave her somnolent and lethargic. We will continue to try to engage in individual and barclay milieu therapy. Plan to discharge once stable. RALF PEÑA CNP CM:PNTRANS 0903 0 FATMATA PEÑA 03/27/17110 interface
--- NOTE | ~2017-03-21 | PR ---
[place], [place] PROGRESS NOTE [id number] UNIT #: [id number] ROOM: 317 DOCTOR: SANDEEP HONG MD BIRTHDATE: [birth year] DOS: 03/23/2017 CHIEF COMPLAINT: "Good morning, get me out of here." SUMMARY OF THE VISIT: The patient was interviewed as she reclined in a Saray chair with a tray table in front of it. She was resting at first, but awoke easily. She did engage in conversation once again being very anxious and fretful. She shook the tray table minimally and asked me to get her out of there. She was very hard to redirect and calm. Nurses report that she does receive the p.r.n. Ativan with good results and that the 0.5 strength did not seem to be strong enough. She seems to be tolerating all her medications well. She does have episodic somnolence from them, but this passes fairly quickly. MENTAL STATUS: She is alert and oriented to person, possibly place, but not time. Mood is depressed with anxious overtones. There is some mood lability and impulsivity. She process slowly and short term memory is exceedingly poor. PLAN: I will go ahead and increase Namenda from 5 mg twice a day to 5 mg in the morning and 10 mg at night. I will increase the Cymbalta from 30 mg in the morning to 60 mg in the morning and increase her straight Ativan from 0.5 mg 3 times a day to 1 mg 3 times a day in an effort to control the anxiety. Her valproic acid level is therapeutic barely at 59.1 I will monitor this. For now, I may consider increasing this as needed and as tolerated. We will engage in individual and barclay milieu activity with the plan then to admit to [facility] when psychiatrically stable. SANDEEP HONG MD CM:PNTRANS 1040 1651 SANDEEP HONG MD 03/23/17 1652 interface
--- NOTE | ~2017-03-21 | PR ---
[place], [place] PROGRESS NOTE NAME: [facility] [id number] UNIT #: [id number] ROOM: 317 DOCTOR: SANDEEP HONG MD BIRTHDATE: [birth year] DOS: 03/24/2017 CHIEF COMPLAINT: "Where is my sister? I need out of here." SUMMARY OF THE VISIT: The patient was interviewed as she reclined in a Saray chair with a tray in front of it. She was attempting to eat her breakfast, but she did stop and engage in conversation. At first, she was able to engage briefly with me responding very superficially, but very quickly she into her own responses that were not appropriate to the questions asked of her. She very quickly escalated becoming agitated wanted to know where her sister was and what she was doing here. Attempts to calm and redirect her were not very successful until I walked away and then she seemed to calm down. Nurses report similar behavior and she continues to escalate and call out, yelling out at all hours of the evening and at night. She does not necessarily respond to verbal prompting nor have PRNs been exceptionally beneficial. MENTAL STATUS: She is alert and oriented to self. It is unclear if she realizes she is in the hospital and she is certainly not oriented to time. Mood remains labile. Affect inappropriate. She is delusional and psychotic. Memory is poor. PLAN: I will max out the dose of Namenda, bringing it up from 15 mg a day to 20 mg a day given in 10 mg b.i.d. dosing. I will bring the Depakote Sprinkles up from 250 mg 3 times a day to 500 mg twice daily, hoping to decrease some of the impulsivity and mood lability, we will maintain her other psychotropics, continue to engage in individual and barclay milieu activity with the ultimate plan to place at [facility] when psychiatrically stable. SANDEEP HONG MD CM:PNTRANS 0843 1058 SANDEEP HONG MD 03/24/17 1059 interface
--- NOTE | ~2017-03-21 | PR ---
[place], [place] PROGRESS NOTE [id number] UNIT #: [id number] ROOM: 317 DOCTOR: FATMATA PEÑA BIRTHDATE: [birth year] DOS: 03/27/2017 SUMMARY OF VISIT: The patient was assessed in the quiet room across from the nurses' station. She is still somewhat sedate, she was yelling about cats a little bit more yesterday. I stopped her scheduled Ativan. I think she is slowly waking up. MENTAL STATUS: I got alert and oriented to name only because she is still quite lethargic in the morning. PLAN: I am going to change her Depakote Sprinkles from 500 mg q.12 to 250 mg t.i.d., so this will be a decreased dose. Her last valproic acid level was in the therapeutic range. Our goal is to get her a little bit more alert and oriented with less psychosis and yelling and screaming about cats and family. We will continue to try to adjust medications and find out right dosage for her and go from there. RALF PEÑA CNP CM:PNTRANS 0845 6 FATMATA PEÑA 03/28/177 interface
--- NOTE | ~2017-03-21 | WRIGHTHP ---
[place], [place] PATIENT HISTORY AND PHYSICAL EXAM [facility] [id number] UNIT #: [id number] ROOM: 317 DOCTOR: SANDEEP HONG MD BIRTHDATE: [birth year] DOS: 03/22/2017 CHIEF COMPLAINT: "I don't feel good at all. My back hurts, my head hurts." HISTORY OF PRESENT ILLNESS: This is a 76-year-old white female who is well known to me from a previous psychiatric admission here on the [facility] as well as in my office and in [place], [place]. The patient had presented here previously, was sent to a custodial where she eloped and had to be brought back forcibly, readmitted here at which time the daughter took her home, but found it near impossible to meet patient's needs because of the severity of her dementia. She did bring her in the office several weeks ago and the patient was at that time very fretful, very anxious and very hard to redirect. She continued to escalate at home, having periods of yelling out nonstop, sobbing hysterically, being very anxious and fretful, exit seeking, talking out of her head. Eventually, she was brought in to the hospital, found to have a UTI and admitted on the medical floor. She is now sent back to the [facility] for further stabilization and possible placement at [facility]. MENTAL STATUS: Upon admission, the patient is alert and oriented to person, not necessarily to place or time. She is very depressed and anxious. She does appear depressed and is near the verge of tears. She is also very anxious and requires one-on-one support and redirection. There is no chang. It is unclear if some of her anxiety is secondary to delusions or not. She does process extremely slowly and short term memory remains horribly poor. DIAGNOSIS: Major depression, recurrent with psychotic features. PLAN: I will go ahead and continue to increase the Namenda, bringing it from 5 mg a day to 5 mg twice a day. I will check the valproic acid level in the morning to ensure that it is therapeutic. I will discontinue the Seroquel at this point and utilize Cymbalta 30 mg in the morning to attempt to help with depression, anxiety and pain. I will also order Ativan 0.5 mg 3 times daily as a short term treatment for her overall anxiety. We will monitor to see whether or not this type of approach to decreasing her anxiety will be effective. If not, I will try to tease out if there are specific delusions that are triggering her crying and her anxiety. I do believe we need to aggressively treat the UTI as well as this impact negatively on her overall mental status. We will engage her in individual and barclay milieu activity with the plan at this point to send to [facility] where I will follow her there. [place], [place] PATIENT HISTORY AND PHYSICAL EXAM NAME: [facility] [id number] UNIT #: [id number] ROOM: 317 DOCTOR: SANDEEP HONG MD BIRTHDATE: [birth year] SANDEEP HONG MD CM:HISPHYS:PATIENT HISTORY AND PHYSICAL EXAMINATION 1029 1047 SANDEEP HONG MD 03/22/17 1048 interface
--- NOTE | ~2017-03-21 | PR ---
[place], [place] PROGRESS NOTE [id number] UNIT #: [id number] ROOM: 317 DOCTOR: SANDEEP HONG MD BIRTHDATE: [birth year] DOS: 03/25/2017 INTERVAL NOTE CHIEF COMPLAINT: "Hey, is it time for breakfast?" SUMMARY OF THE VISIT: The patient was interviewed as she rested in a Saray chair. She actually engaged in some meaningful conversation asking me about breakfast. She did not initially talk about her sister or cat and she did not yell out at me. She was relatively pleasant, but very confused. Responses were short and simple. MENTAL STATUS: She is alert and oriented to self, uncertain if she realizes she is in the hospital, certainly not to time. Mood remains still labile. Affect is still inappropriate. Responses are short and simple, fragmented most of the time. She has a hard time completing a full sentence. There is limited spontaneity. There is no agitation; however, no auditory or visual hallucinations. PLAN: At the present time is to maintain the current psychotropic regimen, engage in individual and barclay milieu activity with the plan to discharge to [facility] when psychiatrically stable. SANDEEP HONG MD CM:PNTRANS 4 5 SANDEEP HONG MD 03/26/17215 interface
[~2017-03-21 14:02] MED LIST changes: +D-1000 185 MG-11 TAB PO; +DEPAKOTE250 MG PO; +DIVALPROEX SOD125 M1 PO; +SEROQUEL25 MG PO
[2017-03-21 15:00] VITALS: BP 149/81
[2017-03-21 16:22] LABS: BASO # 0.1 10*3/uL (0.0-0.1); BASO % 0.9 % (0.0-1.0); EOS # 0.1 10*3/uL (0.0-0.4); EOS % 2.2 % (1.0-4.0); HEMATOCRIT 40.1 % (37.0-47.0); HEMOGLOBIN 13.4 g/dl (12.0-16.0); LYMPH # 2.2 10*3/uL (1.3-4.4); LYMPH % 40.2 % (27.0-41.0); MEAN CELL VOLUME 92.6 fl (81.0-99.0); MEAN CORPUSCULAR HGB 30.9 pg (27.0-31.0); MEAN CORPUSCULAR HGB CONC 33.4 g/dl (33.0-37.0); MEAN PLATELET VOLUME 9.1 fl (9.6-12.3); MONO # 0.5 10*3/uL (0.1-1.0); MONO % 10.1 % (3.0-9.0); NEUT # 2.5 10*3/uL (2.3-7.9); NEUT % 46.4 % (47.0-73.0); PLATELET COUNT AUTOMATED 287 10*3/uL (130-400); RED BLOOD COUNT 4.33 10*6/uL (4.10-5.10); WHITE BLOOD COUNT 5.4 10*3/uL (4.8-10.8)
[2017-03-21 16:51] LABS: ALBUMIN 3.3 gm/dl (3.1-4.5); ALKALINE PHOSPHATASE 92 U/L (45-117); BILIRUBIN, TOTAL 0.2 mg/dl (0.2-1.0); BUN 11 mg/dl (7-24); CARBON DIOXIDE 26 mmol/L (21-32); CHLORIDE 97 mmol/L (98-107); EST GLOM FILT AFRICAN AMERICAN > 60 ml/min; GLUCOSE 96 mg/dL (65-99); POTASSIUM 4.1 mmol/L (3.5-5.1); SGOT/AST 15 IU/L (3-35); SGPT/ALT 11 U/L (12-78); SODIUM 134 mmol/L (136-145); TOTAL PROTEIN 7.5 gm/dL (6.4-8.2)
[2017-03-21 17:50] LABS: FOLIC ACID 12.04 ng/mL (>5.38)
[2017-03-21 20:06] VITALS: BP 140/90
[2017-03-21 21:27] LABS: VITAMIN D, 25-HYDROXY 32.4 ng/mL (30-100)
[2017-03-22 07:48] VITALS: BP 142/88
[2017-03-22 19:32] VITALS: BP 116/85
[2017-03-23 08:10] VITALS: BP 153/86
[2017-03-23 20:34] VITALS: BP 110/66
[2017-03-24 03:54] LABS: BILIRUBIN NEGATIVE (NEGATIVE); BLOOD NEGATIVE (NEGATIVE); CLARITY SL CLOUDY (CLEAR); COLOR YELLOW (YELLOW); GLUCOSE NEGATIVE (NEGATIVE); KETONE TRACE (NEGATIVE); LEUKO ESTERASE NEGATIVE (NEGATIVE); NITRITE NEGATIVE (NEGATIVE); PH 5.5 (5.0-9.0); PROTEIN NEGATIVE (NEGATIVE); SPECIFIC GRAVITY 1.025 (1.005-1.030); UROBILINOGEN 0.2 E.U./dl (0.2-1.0)
[2017-03-24 04:20] LABS: BACTERIA 2+; CALCIUM OXALATE CRYSTALS 1+; URINE REFLEX COMMENT YES (NO)
[2017-03-24 07:54] VITALS: BP 144/72
[2017-03-24 20:51] VITALS: BP 124/84
[2017-03-25 08:01] VITALS: BP 120/70
[2017-03-25 17:30] VITALS: BP 158/98
[2017-03-26 07:56] VITALS: BP 158/84
[2017-03-26 20:09] VITALS: BP 148/77
[2017-03-27 07:47] LABS: BASO % 0.7 % (0.0-1.0); EOS # 0.1 10*3/uL (0.0-0.4); EOS % 2.2 % (1.0-4.0); HEMATOCRIT 39.6 % (37.0-47.0); HEMOGLOBIN 13.6 g/dl (12.0-16.0); LYMPH # 1.7 10*3/uL (1.3-4.4); LYMPH % 30.9 % (27.0-41.0); MEAN CELL VOLUME 92.1 fl (81.0-99.0); MEAN CORPUSCULAR HGB 31.6 pg (27.0-31.0); MEAN CORPUSCULAR HGB CONC 34.3 g/dl (33.0-37.0); MEAN PLATELET VOLUME 8.8 fl (9.6-12.3); MONO # 0.6 10*3/uL (0.1-1.0); MONO % 10.9 % (3.0-9.0); NEUT % 55.1 % (47.0-73.0); PLATELET COUNT AUTOMATED 306 10*3/uL (130-400); RED CELL DISTRI WIDTH 12.8 % (0-14.5); WHITE BLOOD COUNT 5.5 10*3/uL (4.8-10.8)
[2017-03-27 07:51] VITALS: BP 137/67
[2017-03-27 08:10] LABS: ALBUMIN 3.2 gm/dl (3.1-4.5); ALKALINE PHOSPHATASE 78 U/L (45-117); BILIRUBIN, TOTAL 0.5 mg/dl (0.2-1.0); BUN 17 mg/dl (7-24); CARBON DIOXIDE 30 mmol/L (21-32); CHLORIDE 92 mmol/L (98-107); EST GLOM FILT AFRICAN AMERICAN > 60 ml/min; GLUCOSE 86 mg/dL (65-99); POTASSIUM 4.2 mmol/L (3.5-5.1); SGOT/AST 15 IU/L (3-35); SGPT/ALT 15 U/L (12-78); SODIUM 131 mmol/L (136-145); TOTAL PROTEIN 7.1 gm/dL (6.4-8.2)
[2017-03-27 20:23] VITALS: BP 148/84
[2017-03-28 08:06] VITALS: BP 116/67
[2017-03-28 19:45] VITALS: BP 158/83
[2017-03-29 08:22] VITALS: BP 142/68
[2017-03-29 08:24] VITALS: BP 142/68
[2017-03-29 13:30] VITALS: BP 173/84
[2017-03-29] MEDS ORDERED: NAMENDA10 MG PO (13:55)
[2017-03-29 14:22] LABS: BASO % 0.6 % (0.0-1.0); EOS # 0.1 10*3/uL (0.0-0.4); HEMATOCRIT 44.2 % (37.0-47.0); HEMOGLOBIN 15.4 g/dl (12.0-16.0); LYMPH # 1.7 10*3/uL (1.3-4.4); MEAN CELL VOLUME 91.7 fl (81.0-99.0); MEAN CORPUSCULAR HGB CONC 34.8 g/dl (33.0-37.0); MEAN PLATELET VOLUME 8.9 fl (9.6-12.3); MONO # 0.6 10*3/uL (0.1-1.0); MONO % 8.2 % (3.0-9.0); NEUT # 4.6 10*3/uL (2.3-7.9); NEUT % 65.9 % (47.0-73.0); PLATELET COUNT AUTOMATED 313 10*3/uL (130-400); RED BLOOD COUNT 4.82 10*6/uL (4.10-5.10); RED CELL DISTRI WIDTH 12.5 % (0-14.5)
[2017-03-29 14:38] LABS: ALBUMIN 3.4 gm/dl (3.1-4.5); ALKALINE PHOSPHATASE 86 U/L (45-117); BILIRUBIN, TOTAL 0.5 mg/dl (0.2-1.0); BUN 16 mg/dl (7-24); CARBON DIOXIDE 29 mmol/L (21-32); CHLORIDE 93 mmol/L (98-107); CKMB 1.1 ng/ml (0.5-3.6); CPK 67 U/L (26-192); EST GLOM FILT AFRICAN AMERICAN > 60 ml/min; GLUCOSE 93 mg/dL (65-99); POTASSIUM 4.9 mmol/L (3.5-5.1); SGOT/AST 32 IU/L (3-35); SGPT/ALT 17 U/L (12-78); SODIUM 130 mmol/L (136-145); TOTAL PROTEIN 7.9 gm/dL (6.4-8.2)
[2017-03-29 14:41] LABS: TROPONIN I < 0.015 ng/ml (<0.045)
== END 2017-03-29 14:12 | disposition short-term general hospital (02) | DRG 885 ==
LOC: 3N 14:02
PROVIDERS: Hospitalist; Nurse Practitioner Adult Health; Psychiatry & Neurology Psychiatry
DX: F33.3 Major depressive disorder, recurrent, severe with psychotic symptoms (principal); G30.9 Alzheimer's disease, unspecified; F02.81 Dementia in other diseases classified elsewhere, unspecified severity, with behavioral disturbance; F23 Brief psychotic disorder; I10 Essential (primary) hypertension; F63.9 Impulse disorder, unspecified

== ENCOUNTER 2017-03-29 14:13 | Inpatient (IN) | payer MEDICARE ==
[~2017-03-29 14:13] MED LIST changes: +NAMENDA10 MG PO
[2017-03-29 14:41] VITALS: BP 190/84
[2017-03-29 16:00] VITALS: BP 136/82
[2017-03-29 18:02] LABS: CKMB 1.2 ng/ml (0.5-3.6); CPK 58 U/L (26-192)
[2017-03-29 18:04] LABS: TROPONIN I < 0.015 ng/ml (<0.045)
== END 2017-03-29 19:58 | disposition short-term general hospital (02) | DRG 640 ==
LOC: 4E 14:13
PROVIDERS: Hospitalist
DX: R62.7 Adult failure to thrive (principal); G93.41 Metabolic encephalopathy; F33.3 Major depressive disorder, recurrent, severe with psychotic symptoms; I71.2 Thoracic aortic aneurysm, without rupture; G30.8 Other Alzheimer's disease; F02.81 Dementia in other diseases classified elsewhere, unspecified severity, with behavioral disturbance; E55.9 Vitamin D deficiency, unspecified; M19.90 Unspecified osteoarthritis, unspecified site; K63.5 Polyp of colon; I10 Essential (primary) hypertension; F17.210 Nicotine dependence, cigarettes, uncomplicated; Z88.0 Allergy status to penicillin; Z88.1 Allergy status to other antibiotic agents; Z91.041 Radiographic dye allergy status; Z79.82 Long term (current) use of aspirin; Z80.0 Family history of malignant neoplasm of digestive organs; Z90.49 Acquired absence of other specified parts of digestive tract; Z82.49 Family history of ischemic heart disease and other diseases of the circulatory system; Z79.899 Other long term (current) drug therapy

== ENCOUNTER 2017-03-30 02:02 | Inpatient (IN) | payer MEDICARE ==
[~2017-03-30] VITALS: Ht 170.2 cm; Wt 62.3 kg
[2017-03-30 05:20] VITALS: BP 154/89
[2017-03-30 06:29] LABS: BASO # 0.1 10*3/uL (0.0-0.1); BASO % 1.1 % (0.0-1.0); EOS # 0.1 10*3/uL (0.0-0.4); HEMATOCRIT 42.3 % (37.0-47.0); HEMOGLOBIN 14.3 g/dl (12.0-16.0); LYMPH # 1.5 10*3/uL (1.3-4.4); LYMPH % 26.9 % (27.0-41.0); MEAN CELL VOLUME 92.8 fl (81.0-99.0); MEAN CORPUSCULAR HGB 31.4 pg (27.0-31.0); MEAN CORPUSCULAR HGB CONC 33.8 g/dl (33.0-37.0); MEAN PLATELET VOLUME 8.9 fl (9.6-12.3); MONO # 0.6 10*3/uL (0.1-1.0); MONO % 10.1 % (3.0-9.0); NEUT # 3.3 10*3/uL (2.3-7.9); NEUT % 59.5 % (47.0-73.0); PLATELET COUNT AUTOMATED 347 10*3/uL (130-400); RED BLOOD COUNT 4.56 10*6/uL (4.10-5.10); RED CELL DISTRI WIDTH 12.8 % (0-14.5); WHITE BLOOD COUNT 5.5 10*3/uL (4.8-10.8)
[2017-03-30 06:39] LABS: BILIRUBIN NEGATIVE (NEGATIVE); BLOOD NEGATIVE (NEGATIVE); CLARITY CLEAR (CLEAR); COLOR YELLOW (YELLOW); GLUCOSE NEGATIVE (NEGATIVE); KETONE TRACE (NEGATIVE); LEUKO ESTERASE TRACE (NEGATIVE); NITRITE NEGATIVE (NEGATIVE); PROTEIN NEGATIVE (NEGATIVE); UROBILINOGEN 0.2 E.U./dl (0.2-1.0)
[2017-03-30 06:40] LABS: ALBUMIN 3.3 gm/dl (3.1-4.5); ALKALINE PHOSPHATASE 78 U/L (45-117); BILIRUBIN, TOTAL 0.4 mg/dl (0.2-1.0); BUN 16 mg/dl (7-24); CARBON DIOXIDE 29 mmol/L (21-32); CHLORIDE 98 mmol/L (98-107); CHOLESTEROL 198 mg/dL (<200); EST GLOM FILT AFRICAN AMERICAN > 60 ml/min; GLUCOSE 89 mg/dL (65-99); HDL CHOLESTEROL 77 mg/dl (40-60); LDL CHOLESTEROL 110 mg/dL (9-159); MAGNESIUM 1.7 mg/dL (1.5-2.1); PHOSPHOROUS 3.3 mg/dL (2.5-4.9); POTASSIUM 4.1 mmol/L (3.5-5.1); SGOT/AST 16 IU/L (3-35); SGPT/ALT 13 U/L (12-78); SODIUM 136 mmol/L (136-145); TOTAL PROTEIN 7.4 gm/dL (6.4-8.2); TRIGLYCERIDES 53 mg/dl (<150); VLDL CHOLESTEROL 11 mg/dL (6-40)
[2017-03-30 06:42] LABS: FREE T4 1.21 ng/dl (0.76-1.46)
[2017-03-30 06:47] LABS: BACTERIA TRACE; URINE REFLEX COMMENT YES (NO)
[2017-03-30 06:58] LABS: HEMOGLOBIN A1c 5.3 % (4.8-5.6); PROTHROMBIN TIME 10.7 SECONDS (9.0-12.4)
[2017-03-30 08:00] VITALS: BP 136/58
[2017-03-30 09:14] LABS: VITAMIN D, 25-HYDROXY 39.1 ng/mL (30-100)
[2017-03-30 09:15] LABS: FOLIC ACID 16.64 ng/mL (>5.38)
[2017-03-30 12:00] VITALS: BP 106/77
[2017-03-30 12:40] LABS: CPK 55 U/L (26-192)
[2017-03-30 12:51] LABS: TROPONIN I < 0.015 ng/ml (<0.045)
[2017-03-30 18:12] LABS: CKMB 0.8 ng/ml (0.5-3.6); CPK 50 U/L (26-192); TROPONIN I < 0.015 ng/ml (<0.045)
[2017-03-30 20:00] VITALS: BP 135/58
[2017-03-31] VITALS: BP 163/72
[2017-03-31 00:52] LABS: CPK 39 U/L (26-192)
[2017-03-31 00:53] LABS: TROPONIN I < 0.015 ng/ml (<0.045)
[2017-03-31 08:00] VITALS: BP 168/80
[2017-03-31 12:00] VITALS: BP 144/88
== END 2017-03-31 14:30 | disposition other institution (70) | DRG 56 ==
LOC: 5E 02:02
PROVIDERS: Internal Medicine
DX: G30.8 Other Alzheimer's disease (principal); G93.41 Metabolic encephalopathy; E44.0 Moderate protein-calorie malnutrition; F02.81 Dementia in other diseases classified elsewhere, unspecified severity, with behavioral disturbance; F33.3 Major depressive disorder, recurrent, severe with psychotic symptoms; G20 Parkinson's disease; I10 Essential (primary) hypertension; R62.7 Adult failure to thrive; I71.2 Thoracic aortic aneurysm, without rupture; F17.210 Nicotine dependence, cigarettes, uncomplicated; E55.9 Vitamin D deficiency, unspecified; Z90.49 Acquired absence of other specified parts of digestive tract; Z82.49 Family history of ischemic heart disease and other diseases of the circulatory system; Z80.0 Family history of malignant neoplasm of digestive organs; Z88.0 Allergy status to penicillin; Z88.1 Allergy status to other antibiotic agents; Z79.82 Long term (current) use of aspirin; Z88.8 Allergy status to other drugs, medicaments and biological substances; Z79.899 Other long term (current) drug therapy; Z68.21 Body mass index [BMI] 21.0-21.9, adult